=== PATIENT | female | born 1965 | race Caucasian/White ===

== ENCOUNTER 2022-08-21 10:02 | Emergency (ER) | payer BC ==
[~2022-08-21] VITALS: Ht 160 cm; Wt 57.0 kg
[~2022-08-21 10:02] MED LIST: EST05TD TD; HYDR-3583 PO; IBP800T PO; NF-ESOM40C PO; ONDAN4ODT PO; TRAM-21 PO
[2022-08-21] MEDS ORDERED: AMOX-355 PO (10:21)
--- NOTE | 2022-08-21 10:21 | ED Integumentary General ---
"General Chief Complaint: Bite-Animal/Human/Insect Stated Complaint: DOG BITE | RT ARM AND WRIST Nursing Triage Note: PT AMB TO RM 5 PT STATES WAS BITTEN BY DOG, UNSURE IS VACCINATED. PT R FA HAS FANG MUÑOZ FROM BITE. PT RATES PAIN 5/6. NO POLICE NOTIFIED, FAMILY DOG. Source: patient Exam Limitations: no limitations History of Present Illness Date Seen by Provider: Aug 21, 2022 Time Seen by Provider: 10:10 Initial Comments 56-year-old female presents emergency department today for dog bite to right forearm. He was walking in with her dog in the peripheral pocket out with her dog when the dog surprised the dog causing him to fight. She was caught between the door and the dogs and sustained a bite to her right forearm. Unclear which dog bit her. Both dogs have been immunized against rabies in our home pets with no suspicious activity. Incident happened just prior to arrival. Last tetanus shot was about 3 years ago. No other injuries. Allergies and Home Medications Allergies Coded Allergies: Hydrocodone (Unverified Allergy, Mild, HIVES, 12/15/09) Patient Home Medication List Home Medication List Reviewed: Yes Amoxicillin/Potassium Clav (Augmentin 500-125 Tablet) 500 Mg-125 Mg Tablet, 1 EACH PO BID Prescribed by: ANITA LINTON MD on 08/21/22 1021 Review of Systems Review of Systems Constitutional: no symptoms reported EENTM: no symptoms reported Respiratory: no symptoms reported Cardiovascular: no symptoms reported Gastrointestinal: no symptoms reported Genitourinary: no symptoms reported Musculoskeletal: no symptoms reported Skin: other (laceration R forearm) Psychiatric/Neurological: No Symptoms Reported Endocrine: No Symptoms Reported Hematologic/Lymphatic: No Symptoms Reported Past Gycicyu-Bwfdur-Mcyfzh Hx Patient Social History Tobacco Use?: No Use of E-Cig and/or Vaping dev: No Substance use?: No Alcohol Use?: No Pt feels they are or have been: No Immunizations Up To Date Influenza Vaccine Up-to-Date: Yes; Up-to-Date First/Initial COVID19 Vaccinat: YES Second COVID19 Vaccination Won: YES Past Medical History Reproductive Disorders: No Family Medical History Reviewed Nursing Family Hx No Pertinent Family Hx Physical Exam Vital Signs Vital Signs - First Documented 08/21/22 10:10 Temp 36.3 Pulse 79 Resp 18 B/P (MAP) 108/69 (82) Pulse Ox 98 Capillary Refill : Less Than 3 Seconds HEENT: normal ENT inspection, pharynx normal Neck: non-tender, full range of motion, supple, normal inspection Cardiovascular: regular rate, rhythm, no murmur Respiratory: chest non-tender, lungs clear, normal breath sounds, no respiratory distress Gastrointestinal: normal bowel sounds, non tender, soft Extremities: normal range of motion, non-tender, normal inspection Skin: other (2 lacerations to the right forearm. The largest is the medial aspect of the mid forearm, approximately 2 cm curvilinear. Into the subcutaneous tissue. No tendon involvement. This relieved neurovascular motor and sensory intact. Slightly proximal there is a puncture type laceration, less than 1 cm.) Progress/Results/Core Measures Results/Orders My Orders Orders - SHAILA,ANITA Kang DO Dipht,Pertjen(Acell),Tet Adult (Boostrix (08/21/22 10:30) Vital Signs/I&O 08/21/22 10:10 Temp 36.3 Pulse 79 Resp 18 B/P (MAP) 108/69 (82) Pulse Ox 98 Blood Pressure Mean: 82 Departure Communication (Admissions) Patient is hemodynamically stable. No clinical evidence of tenderness or nerve injury. Lacerations are small and not in cosmetic areas we will leave them open to lessen the risk for infection. The patient is comfortable with this. Tetanus was just over 3 years ago, will have him update this today. Both dogs have been vaccinated against rabies. She has no other injuries. Wounds were cleansed copiously and a dressing applied. Strict wound care instructed. Discharged with antibiotics. Impression Primary Impression: Dog bite Qualified Codes: W54.0XXA - Bitten by dog, initial encounter Additional Impression: Laceration of right forearm Qualified Codes: S51.811A - Laceration without foreign body of right forearm, initial encounter Disposition: 01 HOME, SELF-CARE Condition: Stable Departure-Patient Inst. Referrals: ZACH QUESADA MD (PCP/Family) Primary Care Physician Patient Instructions: Animal Bites (DC) Add. Discharge Instructions: The antibiotics as prescribed until they are gone. Wound to be left open to help prevent infection. Keep them clean, bathing daily. Use ibuprofen and Tylenol as needed for pain. He is likely to hurt more tomorrow than they do today which would be normal. Return to the emergency department for any redness that spreading rapidly, drainage looks like pus or fevers. All discharge instructions reviewed with patient and/or family. Voiced understanding. Scripts Amoxicillin/Potassium Clav (Augmentin 500-125 Tablet) 500 Mg-125 Mg Tablet 1 EACH PO BID for 10 Days, #20 TAB Prov: ANITA LINTON DO 08/21/22 ANITA LINTON DO Aug 21, 2022 10:21"
[2022-08-21] MEDS ORDERED: TETANUS,DIPTH,PERTUSS P/F (BOOSTRIX) 0.5 ML VIAL IM ONE (10:30)
[2022-08-21 10:56] VITALS: BP 111/71
== END 2022-08-21 10:57 | disposition home or self-care (01) ==
LOC: EDUNIT# 10:02 → ER 10:06
DX: S51.811A Laceration without foreign body of right forearm, initial encounter (principal); Z23 Encounter for immunization; W54.0XXA Bitten by dog, initial encounter
CPT/HCPCS: 90715; 99284